=== PATIENT | male | born 1975 | race Two or more races ===

== ENCOUNTER 2018-05-21 23:35 | Emergency (ER) | payer SELFPAY ==
[~2018-05-21] VITALS: Ht 188 cm; Wt 95.5 kg
[2018-05-22] MEDS ORDERED: LIDOCAINE 1% 10 ML VIAL INJ ONE (00:30)
[2018-05-22] MEDS ORDERED: POVIDONE-IODINE 10% 15 ML SOLUTION UD TP ONE (00:45)
[2018-05-22] MEDS ORDERED: BACITRACIN 0.9 GM PACKET OINTMENT TP ONE ×2 (01:00→01:15)
[2018-05-22 01:05] VITALS: BP 127/81
== END 2018-05-22 01:15 | disposition home or self-care (01) ==
LOC: EMS 23:35
DX: S01.81XA Laceration without foreign body of other part of head, initial encounter (principal); F17.210 Nicotine dependence, cigarettes, uncomplicated; Y04.0XXA Assault by unarmed brawl or fight, initial encounter; Y93.89 Activity, other specified; Y92.89 Other specified places as the place of occurrence of the external cause; Y99.8 Other external cause status
CPT/HCPCS: 12011; 99283; J3490

== ENCOUNTER 2018-06-01 20:17 | Emergency (ER) | payer SELFPAY ==
[~2018-06-01] VITALS: Ht 188 cm; Wt 100.0 kg
[2018-06-01 21:40] VITALS: BP 132/89
== END 2018-06-01 21:40 | disposition home or self-care (01) ==
LOC: EMS 20:20
DX: S01.21XD Laceration without foreign body of nose, subsequent encounter (principal); Z48.02 Encounter for removal of sutures; Y04.0XXD Assault by unarmed brawl or fight, subsequent encounter